=== PATIENT | female | born 1970 | race Caucasian/White ===

== ENCOUNTER 2019-03-18 09:16 | Day surgery (SDC) | payer OTHER ==
[~2019-03-18 09:16] MED LIST: Betamethasone INJ* 6 MG/ML 5 ML VIAL (30 MG) ONE; Buffered Lidocaine 1% SYRIN* 1 ML/SYRINGE INTRADERM ONE; Bupivacaine 0.25% SDV* 30 ML ONE; Lactated Ringers 1000 ML Bag* 1,000 ML IV SCH; Lidocaine 1% MPF* 2 ML VIAL ONE
[2019-03-18] MEDS ORDERED: fentaNYL* 50 MCG/ML 2 ML VIAL (100 MCG VIAL) ONE (10:44)
[2019-03-18] MEDS ORDERED: Midazolam* 1 MG/ML 5 ML VIAL (5 MG) ONE (10:44)
[2019-03-18] MEDS ORDERED: Lidocaine 2% PF * 5 ML VIAL ONE (10:59)
[2019-03-18] MEDS ORDERED: Propofol* 10 MG/ML 20 ML BTL ONE (10:59)
[2019-03-18] MEDS ORDERED: Naloxone* 0.4 MG/ML 1 ML VIAL IV PRN (11:08)
[2019-03-18 12:27] VITALS: BP 110/83
--- NOTE | 2019-03-18 15:08 | OP ---
DATE OF OPERATION: 03/18/19 - [facility] DATE OF : 66 SURGEON: Juan Mar MD. COST CONTROLLER: RIVRE Arana. ANESTHESIOLOGIST: Dr. Quezada. ANESTHESIA: Local MAC. PRE-OP DIAGNOSES: 1. Left middle finger/palm soft tissue mass. 2. Right index finger metacarpophalangeal joint arthritis. POST-OP DIAGNOSES: 1. Left middle finger/palm soft tissue mass. 2. Right index finger metacarpophalangeal joint arthritis. OPERATIVE PROCEDURES: 1. Excision of left palm soft tissue mass. 2. Right index finger metacarpophalangeal joint corticosteroid injection. INDICATIONS: Ila has the aforementioned condition. The mass near the MCP crease on the left middle finger is very large. The index finger MCP joint is symptomatic and painful. We talked about the risks and benefits, including the risks to the digital nerve. She understands and wishes to proceed. ESTIMATED BLOOD LOSS: 2 mL. COMPLICATIONS: None. FINDINGS: See above and below. DESCRIPTION OF PROCEDURE: Ila was seen in the preoperative holding area. The correct site and side and procedures were identified. We came back to the operating room where I anesthetized the operative area with 0.25% Marcaine. I then came over and administered a corticosteroid injection to the index finger MCP joint on the right hand utilizing 1 mL of 1% plain lidocaine and 6 mg of betamethasone that was injected using a 25 gauge needle. A Band-Aid was applied there. The left hand was then prepped and draped in the usual fashion. A time out was performed. The arm was exsanguinated and the tourniquet inflated. We made a little V- shaped incision over the palmar radial aspect of the third MCP joint utilizing the distal palmar crease. Dissection was carried down. A very large ganglion cyst was encountered. The radial digital nerve was and retracted radially. The cyst was then excised via marginal excision taken right of the tendon sheath. It had incorporated a fairly large amount of the A1 azul. The remainder of the A1 azul was released with the tenotomy scissors. The area was gently cauterized using the Bovie. At this point, everything was looking good. Skin was closed with 4-0 nylon suture. She was placed in a soft dressing and she was taken to the recovery room in stable condition. [id number]/[facility] #: [id number] TYRELL
== END 2019-03-18 12:27 | disposition home or self-care (01) ==
LOC: OREAST 09:16
PROVIDERS: ATTEND Orthopaedic Surgery Hand Surgery
DX: M67.442 Ganglion, left hand (principal); M19.041 Primary osteoarthritis, right hand; E78.5 Hyperlipidemia, unspecified; K21.9 Gastro-esophageal reflux disease without esophagitis; F41.8 Other specified anxiety disorders; F17.210 Nicotine dependence, cigarettes, uncomplicated
CPT/HCPCS: 81025; 88304; J0702; J2250; J2704; J3010; J3490